=== PATIENT | female | born 1995 | race Caucasian/White ===

== ENCOUNTER 2016-04-14 23:05 | Emergency (ER) | payer OTHER ==
[2016-04-14] MEDS ORDERED: ACETAMINOPHEN 500 MG TABLET PO ONE (23:29)
[2016-04-14] MEDS ORDERED: NAPROXEN SODIUM 550 MG TABLET PO ONE (23:29)
--- NOTE | 2016-04-14 23:31 | ERNOTE ---
Chest Pain/Cardiac HPI Date of Service: 04/14/16 Chief Complaint: Chest Pain Source: patient Exam Limitations: no limitations Immunizations: IMMUNIZATION HX Immunizations Up to Date Yes History of Influenza Vaccine No Hx Pneumococcal Vaccination No Allergies/Adverse Reactions: Allergies lisdexamfetamine dimesylate [From Vyvanse] Allergy (Mild, Verified 04/14/16 23: 12) Hives Home Medications: HOME MEDICATIONS Levothyroxine Sodium 04/14/16 [Last Taken Unknown] Celecoxib [Celebrex] 200 mg PO DAILY PRN #7 capsule 04/15/16 [Last Taken Unknown ] Narrative: Sudden onset of chest pressure that is aggravated by movement or taking a deep breath. She has had similar pain in the past when she was upset due to an argument and does admit to having anxiety. However she was not upset today. Take control pills, but does not smoke. No history of fevers or chills. Has previously experienced GERD symptoms. No previous PE/DVT. Timing: constant Severity/Quality: mild Location: substernal Chest Pain Radiation: no radiation Activities at Onset: other - none Modifying Factors - Improves: Present: rest Modifying Factors - Worsens: Present: movement Nitro Today/Relief: no nitro taken today Aspirin Treatment Today: no aspirin today Associated Symptoms: Present: denies symptoms Prior Chest Pain/Cardiac Workup: Reports: no prior cardiac workup Review of Systems - Review of Systems Constitutional: Present: no symptoms reported EYE: Present: no symptoms reported ENT: Present: no symptoms reported Respiratory: Present: See HPI Cardiology: Present: no symptoms reported Gastrointestinal/Abdominal: Present: no symptoms reported Genitourinary: Present: no symptoms reported Musculoskeletal: Present: no symptoms reported Skin: Present: no symptoms reported Neurological: Present: no symptoms reported Endocrine: Present: no symptoms reported Hematologic/Lymphatic: Present: no symptoms reported Psych: Present: no symptoms reported - Patient's Past Medical History Patient History - Medical: Anxiety, Depression, Hypothyroidism Patient History - Cardiac/Respiratory: No pertinent hx Patient History - Cancer: No Hx of Cancer Patient History - Surgical Procedures: T & A Patient History - Other: None LMP (females 10-50): this week - Social History Living Situations: home Smoking Status: Never smoker Have you smoked in the past 12 months: No Do you dip or chew tobacco: No Patient requests Smoking Cessation Consult: No Initiate information on Smoking Cessation: No Alcohol Use: none Drug Use: none - Immunizations Immunizations Up to Date: Yes Hx Pneumococcal Vaccination: No History of Influenza Vaccine: No Physical Exam - Physical Exam General Appearance: Present: no apparent distress Eye Exam: Normal inspection: bilateral Ears, Nose, Throat: Present: normal ENT inspection Neck: Present: normal inspection Respiratory: Present: no respiratory distress, chest tenderness - with compression that recreates the pain pattern. 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 - Vital Signs Patient's Vital Signs:: I have reviewed the patient's vital signs. Vital Signs: Vital Signs 04/14/16 23:13 Temperature 36.9 C Pulse Rate 97 Respiratory 15 Rate Blood Pressure 157/73 O2 Sat by Pulse 100 Oximetry - X-Ray X-Ray #1 X-Ray: chest Interpretation: Interp. by me X-ray Comments: NAD - Progress/Reassessment Chief Complaint: Chest Pain Departure - Departure Clinical Impression: Chest wall discomfort Disposition: Home self-care Condition: Good Instructions: Costochondritis, [id number] Print Language: [place] Additional Instructions: You can also take Tylenol for the pain. Follow up with your primary care physician as needed. Prescriptions: Celecoxib [Celebrex] 200 mg PO DAILY PRN #7 capsule PRN Reason: Pain
[2016-04-14] MEDS ORDERED: NAPROXEN SODIUM 550 MG TABLET ONE (23:56)
[2016-04-15 04:53] VITALS: BP 149/68
== END 2016-04-15 00:50 | disposition home or self-care (01) ==
LOC: ER 23:05
DX: R07.89 Other chest pain (principal)

== ENCOUNTER 2016-08-05 17:40 | Emergency (ER) | payer OTHER ==
--- OUTSIDE RECORDS SUMMARY | 2016-08-05 18:57 | XMS REPORT | Continuity of Care Document ---
:1995 Author Organization [employer] [place] [address] Care Team Providers Name Role Phone Unavailable Primary Care Provider Unavailable Source Comments This disclosure is being made pursuant to the Axial program and maynot contain all information available regarding this patient.[employer] Active Allergies and Adverse Reactions Not on File Current Medications Be aware that medications may not be up to date as of this document. Alwaysverify current medications with the patient. Not on file Active Problems Not on file Social History Tobacco Use Types Packs/Day Years Used Date Never Assessed Plan of Care Health Maintenance Due Date Last Done Comments Well Child 3-18 Annual 07/08/1999 HPV Vaccine ([id number]) (1 of 3 - Female/Unknown 3 Dose 07/08/2007 Series) Chlamydia Screening 2012 Retired-INFLUENZA VACCINE 11/15/2014 Retired-Tetanus Vaccine Adult 07/08/2015 Results from Last 3 Months Not on file
--- NOTE | 2016-08-05 18:58 | ERNOTE ---
Upper Extremity HPI - General Extremities Pain Location: collar-bone area: left - left chest wall Time Seen by Provider: 08/05/16 18:49 Source: patient Exam Limitations: no limitations - Immun/Allergies/Home Medications Immunizations: IMMUNIZATION HX Immunizations Up to Date No History of Influenza Vaccine No Hx Pneumococcal Vaccination No Allergies/Adverse Reactions: Allergies Allergy/AdvReac Type Severity Reaction Status Date / Time lisdexamfetamine dimesylate Allergy Mild Hives Verified 04/14/16 23:12 [facility] Home Medications: HOME MEDICATIONS Levothyroxine Sodium 04/14/16 [Last Taken Unknown] Celecoxib [Celebrex] 200 mg PO DAILY PRN #7 capsule 04/15/16 [Last Taken Unknown ] Cyclobenzaprine HCl [Flexeril] 10 mg PO TID PRN #30 tab 08/05/16 [Last Taken Unknown] Naproxen [Naprosyn] 500 mg PO BID #60 tablet 08/05/16 [Last Taken Unknown] - History of Present Illness Narrative: Patient states she does fairly heavy lifting at [employer]. While lifting perhaps 40 or 50 pound box she strained her left anterior chest wall. She has had continued pain in that area every time she tries to do any heavy lifting. Occurred: other - several days ago Location of Incident: work Severity: moderate Method of Injury: Reports: other - possibly from lifting Loss of Consciousness: Reports: no loss of consciousness Review of Systems - Review of Systems Constitutional: Present: See HPI EYE: Present: no symptoms reported ENT: Present: no symptoms reported Respiratory: Present: no symptoms reported Cardiology: Present: chest pain - chest wall Gastrointestinal/Abdominal: Present: no symptoms reported Genitourinary: Present: no symptoms reported Musculoskeletal: Present: no symptoms reported Skin: Present: no symptoms reported Neurological: Present: no symptoms reported Endocrine: Present: no symptoms reported Hematologic/Lymphatic: Present: no symptoms reported Psych: Present: no symptoms reported - Patient's Past Medical History Patient History - Medical: Anxiety, Depression, Hypothyroidism Patient History - Cardiac/Respiratory: No pertinent hx Patient History - Cancer: No Hx of Cancer Patient History - Surgical Procedures: T & A Patient History - Other: None - Social History Living Situations: home Abuse History: No History of abuse Psych History: Hx of Anxiety, Hx of Depression Smoking Status: Former smoker Have you smoked in the past 12 months: No Do you dip or chew tobacco: No Alcohol Use: none Drug Use: none - Immunizations Immunizations Up to Date: No Hx Pneumococcal Vaccination: No History of Influenza Vaccine: No Physical Exam - Physical Exam General Appearance: Present: wd/wn, alert, moderate distress Eye Exam: Normal inspection: bilateral, PERRL: bilateral Ears, Nose, Throat: Present: normal ENT inspection, H, normal pharynx Neck: Present: normal inspection, nontender Respiratory: Present: no respiratory distress, normal breath sounds, no accessory muscle use, lungs clear, chest tenderness Cardiovascular/Chest: Present: regular rate, rhythm, no murmur, normal peripheral pulses Gastrointestinal/Abdominal: Present: normal bowel sounds, nontender, nondistended, soft, no organomegaly Rectal Exam: Present: deferred Back Exam: Present: normal inspection, normal range of motion Extremity Exam: Present: normal inspection, non-tender, no edema, normal range of motion Neurological Exam: Present: alert, oriented, normal mood/affect Skin Exam: Present: normal color, warm/dry Lymphatic Exam: Present: no adenopathy ED Progress - Vital Signs Patient's Vital Signs:: I have reviewed the patient's vital signs. Vital Signs: Vital Signs 08/05/16 17:47 Temperature 36.8 C Pulse Rate 89 Respiratory 15 Rate Blood Pressure 134/71 O2 Sat by Pulse 99 Oximetry - Progress/Reassessment Chief Complaint: Upper Extremity Injury/Problem Plan - Plan Plan: Patient appears to have strained her left chest wall from lifting. Patient will be started on both a muscle relaxer and an NSAID and she will follow-up with her family doctor within one week. Patient be started on light duty for the next 3 days as well. Departure Clinical Impression: Chest wall discomfort - Departure Disposition: Home self-care Condition: Good Instructions: Chest Wall Pain, [id number] Referrals: Tita Engle MD [Primary Care Provider] - Prescriptions: Cyclobenzaprine HCl [Flexeril] 10 mg PO TID PRN #30 tab PRN Reason: MUSCLE SPASMS Naproxen [Naprosyn] 500 mg PO BID #60 tablet
--- OUTSIDE RECORDS SUMMARY | 2016-08-05 18:58 | XMS REPORT | Continuity of Care Document ---
:1995 Author Organization [facility] ([facility]) Address [address] [place] [address] Phone [phone] Care Team Providers Name Role Phone Unavailable Primary Care Provider Unavailable Source Comments This disclosure is being made pursuant to the Care Everywhere program, applicable federal and state laws, and may not contain all informaitonavailable regarding this patient.[facility] ([facility]) Active Allergies and Adverse Reactions Not on File Current Medications Not on file Active Problems Not on file Social History Tobacco Use Types Packs/Day Years Used Date Never Assessed Plan of Care Health Maintenance Due Date Last Done Comments Hepatitis B Vaccine (1 of 3 - Primary Series) 1996 HPV Vaccine (1 of 3 - Female/Unknown 3 Dose Series) 07/08/2007 Tdap Vaccine 07/08/2007 Meningococcal Vaccine (1 of 1) 2012 Lipid Disorder Screening 2014 MMR Vaccine 2014 Td Vaccine 2014 Varicella Vaccine (1 of 2 - Adult - No Evidence of 2014 Immunity) Influenza Vaccine: Seasonal (#1) 10/16/2015 Results from Last 3 Months Not on file
[2016-08-05 19:04] VITALS: BP 130/69
== END 2016-08-05 19:02 | disposition home or self-care (01) ==
LOC: ER 17:40
DX: R07.89 Other chest pain (principal); X50.0XXA Overexertion from strenuous movement or load, initial encounter; X50.3XXA Overexertion from repetitive movements, initial encounter; Y93.89 Activity, other specified; Y92.511 Restaurant or cafe as the place of occurrence of the external cause; Y99.0 Civilian activity done for income or pay